=== PATIENT | male | born 1945 | race Caucasian/White ===

== ENCOUNTER → 2016-04-05 | Outpatient (CLI) | payer MEDICARE ==
[~2016-04-05] MED LIST: AMLO5TAB2 PO; ASPI325T80 PO; ATOR20TA9 PO; CARV12.543 PO; CLON0.3T PO; CLOP75TA PO; CYCL-259 PO; GLIM2TAB2 PO; HYDR25TA6 PO; INSU100C5 SQ-INSULIN; INSU100I28 SQ; INSU100I28 SQ-INSULIN; INSU100V13 SC; LISI-167 PO; LISI-170 PO; METF10002 PO; METO50TA82 PO; NORT50CA PO; OXYC5TAB3 PO; POLY17PO5 PO; ROSU10TA PO; SENN1TAB7 PO; TEMA15CA6 PO
== END | disposition home or self-care (01) ==
LOC: WOUND 12:45
PROVIDERS: ATTEND Internal Medicine
DX: E11.621 Type 2 diabetes mellitus with foot ulcer (principal); L97.521 Non-pressure chronic ulcer of other part of left foot limited to breakdown of skin; E11.40 Type 2 diabetes mellitus with diabetic neuropathy, unspecified; E11.69 Type 2 diabetes mellitus with other specified complication; M86.172 Other acute osteomyelitis, left ankle and foot; E78.5 Hyperlipidemia, unspecified; E11.22 Type 2 diabetes mellitus with diabetic chronic kidney disease; I12.9 Hypertensive chronic kidney disease with stage 1 through stage 4 chronic kidney disease, or unspecified chronic kidney disease; N18.3 Chronic kidney disease, stage 3 (moderate); G47.33 Obstructive sleep apnea (adult) (pediatric); E11.42 Type 2 diabetes mellitus with diabetic polyneuropathy; E11.51 Type 2 diabetes mellitus with diabetic peripheral angiopathy without gangrene; E78.00 Pure hypercholesterolemia, unspecified; Z86.73 Personal history of transient ischemic attack (TIA), and cerebral infarction without residual deficits
CPT/HCPCS: 97597; 97598

== ENCOUNTER → 2016-04-12 | Outpatient (CLI) | payer MEDICARE | END | disposition home or self-care (01) | LOC: WOUND 10:30 | PROVIDERS: ATTEND Internal Medicine | DX: E11.621 Type 2 diabetes mellitus with foot ulcer (principal); L97.521 Non-pressure chronic ulcer of other part of left foot limited to breakdown of skin; T25.222D Burn of second degree of left foot, subsequent encounter; E11.69 Type 2 diabetes mellitus with other specified complication; M86.172 Other acute osteomyelitis, left ankle and foot; E78.5 Hyperlipidemia, unspecified; E11.22 Type 2 diabetes mellitus with diabetic chronic kidney disease; I12.9 Hypertensive chronic kidney disease with stage 1 through stage 4 chronic kidney disease, or unspecified chronic kidney disease; N18.3 Chronic kidney disease, stage 3 (moderate); E11.42 Type 2 diabetes mellitus with diabetic polyneuropathy; E78.00 Pure hypercholesterolemia, unspecified; E11.51 Type 2 diabetes mellitus with diabetic peripheral angiopathy without gangrene; M19.90 Unspecified osteoarthritis, unspecified site; Z86.73 Personal history of transient ischemic attack (TIA), and cerebral infarction without residual deficits; Z89.511 Acquired absence of right leg below knee; X08.8XXD Exposure to other specified smoke, fire and flames, subsequent encounter | CPT/HCPCS: 97597; 97598 ==

== ENCOUNTER → 2016-05-03 | Outpatient (CLI) | payer MEDICARE | END | disposition home or self-care (01) | LOC: WOUND 09:41 | PROVIDERS: ATTEND Internal Medicine | DX: E11.621 Type 2 diabetes mellitus with foot ulcer (principal); L97.521 Non-pressure chronic ulcer of other part of left foot limited to breakdown of skin; T25.222D Burn of second degree of left foot, subsequent encounter; E11.69 Type 2 diabetes mellitus with other specified complication; M86.172 Other acute osteomyelitis, left ankle and foot; E78.5 Hyperlipidemia, unspecified; E11.22 Type 2 diabetes mellitus with diabetic chronic kidney disease; I12.9 Hypertensive chronic kidney disease with stage 1 through stage 4 chronic kidney disease, or unspecified chronic kidney disease; N18.3 Chronic kidney disease, stage 3 (moderate); E78.00 Pure hypercholesterolemia, unspecified; M19.90 Unspecified osteoarthritis, unspecified site; E11.51 Type 2 diabetes mellitus with diabetic peripheral angiopathy without gangrene; E11.42 Type 2 diabetes mellitus with diabetic polyneuropathy; Z86.73 Personal history of transient ischemic attack (TIA), and cerebral infarction without residual deficits; Z89.511 Acquired absence of right leg below knee; X08.8XXD Exposure to other specified smoke, fire and flames, subsequent encounter | CPT/HCPCS: 97597 ==

== ENCOUNTER → 2016-05-10 | Outpatient (CLI) | payer MEDICARE | END | disposition home or self-care (01) | LOC: WOUND 08:56 | PROVIDERS: ATTEND Internal Medicine | DX: S91.102D Unspecified open wound of left great toe without damage to nail, subsequent encounter (principal); T25.222D Burn of second degree of left foot, subsequent encounter; E11.40 Type 2 diabetes mellitus with diabetic neuropathy, unspecified; E11.69 Type 2 diabetes mellitus with other specified complication; M86.172 Other acute osteomyelitis, left ankle and foot; I10 Essential (primary) hypertension; E78.5 Hyperlipidemia, unspecified; Z86.73 Personal history of transient ischemic attack (TIA), and cerebral infarction without residual deficits; Z89.511 Acquired absence of right leg below knee; T31.0 Burns involving less than 10% of body surface; X08.8XXD Exposure to other specified smoke, fire and flames, subsequent encounter; X58.XXXD Exposure to other specified factors, subsequent encounter | CPT/HCPCS: 97597 ==

== ENCOUNTER → 2016-05-16 | Outpatient (CLI) | payer MEDICARE | END | disposition home or self-care (01) | LOC: WOUND 08:45 | PROVIDERS: ATTEND Internal Medicine | DX: E11.621 Type 2 diabetes mellitus with foot ulcer (principal); L97.521 Non-pressure chronic ulcer of other part of left foot limited to breakdown of skin; E11.40 Type 2 diabetes mellitus with diabetic neuropathy, unspecified; E11.69 Type 2 diabetes mellitus with other specified complication; M86.172 Other acute osteomyelitis, left ankle and foot; I10 Essential (primary) hypertension; E78.5 Hyperlipidemia, unspecified; E78.00 Pure hypercholesterolemia, unspecified; E11.42 Type 2 diabetes mellitus with diabetic polyneuropathy; E11.51 Type 2 diabetes mellitus with diabetic peripheral angiopathy without gangrene; M19.90 Unspecified osteoarthritis, unspecified site; G47.33 Obstructive sleep apnea (adult) (pediatric); Z86.73 Personal history of transient ischemic attack (TIA), and cerebral infarction without residual deficits | CPT/HCPCS: 97597; G0463; WOU0463 ==

== ENCOUNTER → 2016-06-21 | Outpatient (CLI) | payer MEDICARE ==
[~2016-06-21] MED LIST changes: -CLON0.3T PO; +CLON0.3T47 PO
== END | disposition home or self-care (01) ==
LOC: WOUND 12:46
PROVIDERS: ATTEND Internal Medicine
DX: E11.621 Type 2 diabetes mellitus with foot ulcer (principal); L97.521 Non-pressure chronic ulcer of other part of left foot limited to breakdown of skin; L97.421 Non-pressure chronic ulcer of left heel and midfoot limited to breakdown of skin; I10 Essential (primary) hypertension; E78.5 Hyperlipidemia, unspecified; G47.33 Obstructive sleep apnea (adult) (pediatric); E11.69 Type 2 diabetes mellitus with other specified complication; M86.172 Other acute osteomyelitis, left ankle and foot; E78.00 Pure hypercholesterolemia, unspecified; E11.51 Type 2 diabetes mellitus with diabetic peripheral angiopathy without gangrene; M19.90 Unspecified osteoarthritis, unspecified site; E11.22 Type 2 diabetes mellitus with diabetic chronic kidney disease; I12.9 Hypertensive chronic kidney disease with stage 1 through stage 4 chronic kidney disease, or unspecified chronic kidney disease; N18.3 Chronic kidney disease, stage 3 (moderate); Z86.73 Personal history of transient ischemic attack (TIA), and cerebral infarction without residual deficits; Z89.511 Acquired absence of right leg below knee
CPT/HCPCS: 97597

== ENCOUNTER → 2016-06-28 | Outpatient (CLI) | payer MEDICARE | END | disposition home or self-care (01) | LOC: WOUND 13:00 | PROVIDERS: ATTEND Internal Medicine | DX: E11.621 Type 2 diabetes mellitus with foot ulcer (principal); E11.622 Type 2 diabetes mellitus with other skin ulcer; L97.511 Non-pressure chronic ulcer of other part of right foot limited to breakdown of skin; L97.321 Non-pressure chronic ulcer of left ankle limited to breakdown of skin; E78.5 Hyperlipidemia, unspecified; E11.22 Type 2 diabetes mellitus with diabetic chronic kidney disease; I12.9 Hypertensive chronic kidney disease with stage 1 through stage 4 chronic kidney disease, or unspecified chronic kidney disease; N18.3 Chronic kidney disease, stage 3 (moderate); G47.33 Obstructive sleep apnea (adult) (pediatric); E78.00 Pure hypercholesterolemia, unspecified; E11.51 Type 2 diabetes mellitus with diabetic peripheral angiopathy without gangrene; E11.42 Type 2 diabetes mellitus with diabetic polyneuropathy; Z86.73 Personal history of transient ischemic attack (TIA), and cerebral infarction without residual deficits; Z89.511 Acquired absence of right leg below knee | CPT/HCPCS: 97597 ==

== ENCOUNTER → 2016-07-12 | Outpatient (CLI) | payer MEDICARE | END | disposition home or self-care (01) | LOC: WOUND 13:04 | PROVIDERS: ATTEND Internal Medicine | DX: E11.621 Type 2 diabetes mellitus with foot ulcer (principal); L97.521 Non-pressure chronic ulcer of other part of left foot limited to breakdown of skin; E78.5 Hyperlipidemia, unspecified; I10 Essential (primary) hypertension; Z86.73 Personal history of transient ischemic attack (TIA), and cerebral infarction without residual deficits; E11.51 Type 2 diabetes mellitus with diabetic peripheral angiopathy without gangrene; E11.22 Type 2 diabetes mellitus with diabetic chronic kidney disease; I12.9 Hypertensive chronic kidney disease with stage 1 through stage 4 chronic kidney disease, or unspecified chronic kidney disease; N18.3 Chronic kidney disease, stage 3 (moderate); E11.69 Type 2 diabetes mellitus with other specified complication; M86.172 Other acute osteomyelitis, left ankle and foot; E78.00 Pure hypercholesterolemia, unspecified; G47.33 Obstructive sleep apnea (adult) (pediatric); M19.90 Unspecified osteoarthritis, unspecified site; Z89.511 Acquired absence of right leg below knee | CPT/HCPCS: 97597 ==

== ENCOUNTER → 2016-07-26 | Outpatient (CLI) | payer MEDICARE | END | disposition home or self-care (01) | LOC: WOUND 13:00 | PROVIDERS: ATTEND Internal Medicine | DX: E11.621 Type 2 diabetes mellitus with foot ulcer (principal); L97.521 Non-pressure chronic ulcer of other part of left foot limited to breakdown of skin; S81.002D Unspecified open wound, left knee, subsequent encounter; S01.80XD Unspecified open wound of other part of head, subsequent encounter; E78.5 Hyperlipidemia, unspecified; E11.69 Type 2 diabetes mellitus with other specified complication; M86.371 Chronic multifocal osteomyelitis, right ankle and foot; M19.072 Primary osteoarthritis, left ankle and foot; E11.22 Type 2 diabetes mellitus with diabetic chronic kidney disease; I12.9 Hypertensive chronic kidney disease with stage 1 through stage 4 chronic kidney disease, or unspecified chronic kidney disease; N18.3 Chronic kidney disease, stage 3 (moderate); E78.00 Pure hypercholesterolemia, unspecified; E11.51 Type 2 diabetes mellitus with diabetic peripheral angiopathy without gangrene; E11.42 Type 2 diabetes mellitus with diabetic polyneuropathy; M19.90 Unspecified osteoarthritis, unspecified site; Z86.73 Personal history of transient ischemic attack (TIA), and cerebral infarction without residual deficits; Z89.511 Acquired absence of right leg below knee; X58.XXXD Exposure to other specified factors, subsequent encounter | CPT/HCPCS: 97597; 97598 ==

== ENCOUNTER → 2016-08-02 | Outpatient (CLI) | payer MEDICARE | END | disposition home or self-care (01) | LOC: WOUND 13:00 | PROVIDERS: ATTEND Internal Medicine | DX: E11.621 Type 2 diabetes mellitus with foot ulcer (principal); L97.521 Non-pressure chronic ulcer of other part of left foot limited to breakdown of skin; S81.002D Unspecified open wound, left knee, subsequent encounter; S01.80XD Unspecified open wound of other part of head, subsequent encounter; M19.072 Primary osteoarthritis, left ankle and foot; E78.5 Hyperlipidemia, unspecified; E11.69 Type 2 diabetes mellitus with other specified complication; M86.371 Chronic multifocal osteomyelitis, right ankle and foot; M86.172 Other acute osteomyelitis, left ankle and foot; E78.00 Pure hypercholesterolemia, unspecified; E11.22 Type 2 diabetes mellitus with diabetic chronic kidney disease; I12.9 Hypertensive chronic kidney disease with stage 1 through stage 4 chronic kidney disease, or unspecified chronic kidney disease; N18.3 Chronic kidney disease, stage 3 (moderate); E11.42 Type 2 diabetes mellitus with diabetic polyneuropathy; E11.51 Type 2 diabetes mellitus with diabetic peripheral angiopathy without gangrene; M19.90 Unspecified osteoarthritis, unspecified site; Z89.511 Acquired absence of right leg below knee; Z86.73 Personal history of transient ischemic attack (TIA), and cerebral infarction without residual deficits; X58.XXXD Exposure to other specified factors, subsequent encounter | CPT/HCPCS: 97597; G0463; WOU0463 ==

== ENCOUNTER → 2016-08-02 | Outpatient (CLI) | payer MEDICARE | END | disposition home or self-care (01) | LOC: CFH 13:56 | PROVIDERS: ATTEND Internal Medicine | DX: M19.072 Primary osteoarthritis, left ankle and foot (principal) ==

== ENCOUNTER → 2016-12-01 | Outpatient (CLI) | payer MEDICARE | END | disposition home or self-care (01) | LOC: WOUND 14:01 | PROVIDERS: ATTEND Physician Assistant | DX: E11.621 Type 2 diabetes mellitus with foot ulcer (principal); L97.521 Non-pressure chronic ulcer of other part of left foot limited to breakdown of skin; E11.22 Type 2 diabetes mellitus with diabetic chronic kidney disease; I12.9 Hypertensive chronic kidney disease with stage 1 through stage 4 chronic kidney disease, or unspecified chronic kidney disease; N18.3 Chronic kidney disease, stage 3 (moderate); E11.69 Type 2 diabetes mellitus with other specified complication; M86.371 Chronic multifocal osteomyelitis, right ankle and foot; Z86.73 Personal history of transient ischemic attack (TIA), and cerebral infarction without residual deficits; E78.00 Pure hypercholesterolemia, unspecified; E11.42 Type 2 diabetes mellitus with diabetic polyneuropathy; E11.51 Type 2 diabetes mellitus with diabetic peripheral angiopathy without gangrene; M19.90 Unspecified osteoarthritis, unspecified site; G47.33 Obstructive sleep apnea (adult) (pediatric) | CPT/HCPCS: G0463; WOU0463 ==

== ENCOUNTER → 2016-12-12 | Outpatient (CLI) | payer MEDICARE | END | disposition home or self-care (01) | LOC: WOUND 14:31 | PROVIDERS: ATTEND Internal Medicine Infectious Disease | DX: E11.621 Type 2 diabetes mellitus with foot ulcer (principal); L97.521 Non-pressure chronic ulcer of other part of left foot limited to breakdown of skin; I10 Essential (primary) hypertension; E11.43 Type 2 diabetes mellitus with diabetic autonomic (poly)neuropathy; I70.202 Unspecified atherosclerosis of native arteries of extremities, left leg; E78.01 Familial hypercholesterolemia; E11.22 Type 2 diabetes mellitus with diabetic chronic kidney disease; I12.9 Hypertensive chronic kidney disease with stage 1 through stage 4 chronic kidney disease, or unspecified chronic kidney disease; N18.3 Chronic kidney disease, stage 3 (moderate); G47.33 Obstructive sleep apnea (adult) (pediatric); Z86.73 Personal history of transient ischemic attack (TIA), and cerebral infarction without residual deficits; E78.00 Pure hypercholesterolemia, unspecified; E11.42 Type 2 diabetes mellitus with diabetic polyneuropathy; E11.51 Type 2 diabetes mellitus with diabetic peripheral angiopathy without gangrene; M19.90 Unspecified osteoarthritis, unspecified site | CPT/HCPCS: G0463; WOU0463 ==

== ENCOUNTER → 2017-07-12 | Outpatient (CLI) | payer MEDICARE | END | disposition home or self-care (01) | LOC: RAD 13:48 | PROVIDERS: ATTEND Physical Medicine & Rehabilitation | DX: M51.17 Intervertebral disc disorders with radiculopathy, lumbosacral region (principal); M43.16 Spondylolisthesis, lumbar region; M47.27 Other spondylosis with radiculopathy, lumbosacral region | CPT/HCPCS: 72110; 72148 ==

== ENCOUNTER 2017-10-08 14:06 | Emergency (ER) | payer MEDICARE ==
[~2017-10-08] VITALS: Ht 182.9 cm; Wt 89.0 kg
[2017-10-08 14:20] VITALS: BP 180/87
[2017-10-08 15:01] LABS: BASOPHILS # (AUTO) 0.11 x10^3/uL (0-0.1); BASOPHILS % (AUTO) 1 % (0-1); EOSINOPHILS # (AUTO) 0.22 x10^3/uL (0-0.4); EOSINOPHILS % (AUTO) 2 % (1-7); LYMPHOCYTES # (AUTO) 1.75 x10^3/uL (1-3.4); LYMPHOCYTES % (AUTO) 14 % (22-44); MD NO; MEAN CORPUSCULAR HEMOGLOBIN 30.1 pg (27.5-34.5); MEAN CORPUSCULAR HGB CONC 32.8 g/dL (33.2-36.2); MEAN CORPUSCULAR VOLUME 91.8 fL (81-97); MEAN PLATELET VOLUME 7.6 fL (7.4-10.4); MONOCYTES # (AUTO) 0.99 x10^3/uL (0.2-0.8); MONOCYTES % (AUTO) 8 % (2-9); NEUTROPHILS # (AUTO) 9.19 x10^3/uL (1.8-6.8); NEUTROPHILS % (AUTO) 75 % (42-75); PLATELET COUNT 236 x10^3/uL (130-400); RED BLOOD COUNT 5.89 x10^6/uL (4.38-5.82); RED CELL DISTRIBUTION WIDTH 14.7 % (9.4-14.8)
[2017-10-08 15:14] LABS: ALBUMIN 3.9 g/dL (3.4-5.0); ANION GAP 12 mmol/L (5-15); CALCIUM 9.1 mg/dL (8.5-10.1); CHLORIDE 107 mmol/L (98-107)
[2017-10-08 15:16] LABS: CULTURE INDICATED? NO; MICROSCOPIC AUTO
[2017-10-08 15:20] LABS: ALANINE AMINOTRANSFERASE 43 U/L (12-78); ALKALINE PHOSPHATASE 68 U/L (45-117); BILIRUBIN,TOTAL 1.1 mg/dL (0.2-1.0); CREATININE 1.35 mg/dL (0.7-1.3)
== END 2017-10-08 16:40 | disposition home or self-care (01) ==
LOC: ED 16:19
DX: R33.9 Retention of urine, unspecified (principal); I10 Essential (primary) hypertension; E11.9 Type 2 diabetes mellitus without complications; E78.00 Pure hypercholesterolemia, unspecified; Z86.73 Personal history of transient ischemic attack (TIA), and cerebral infarction without residual deficits
CPT/HCPCS: 36415; 51702; 74018; 80053; 81001; 85025; 99285

== ENCOUNTER → 2018-01-15 | Outpatient (CLI) | payer MEDICARE ==
[~2018-01-15] MED LIST changes: -AMLO5TAB2 PO; +AMLO5TAB7 PO; -NORT50CA PO; +NORT50CA52 PO; +REGADENOSON 0.4 MG/5 ML SYRINGE ONE; -SENN1TAB7 PO; +SENN1TAB8 PO
== END | disposition home or self-care (01) ==
LOC: CFH 06:48
PROVIDERS: ATTEND Internal Medicine Cardiovascular Disease
DX: I25.10 Atherosclerotic heart disease of native coronary artery without angina pectoris (principal)
CPT/HCPCS: 78452; 93017; A9502; J2785

== ENCOUNTER 2018-01-28 09:34 | Observation (INO) | payer MEDICARE ==
[~2018-01-28] VITALS: Ht 182.9 cm; Wt 85.9 kg
[~2018-01-28 09:34] MED LIST changes: +AMLO-150 PO; -AMLO5TAB7 PO; +ATOR20TA37 PO; -ATOR20TA9 PO; -REGADENOSON 0.4 MG/5 ML SYRINGE ONE
[2018-01-28 10:32] VITALS: BP 116/71
[2018-01-28] MEDS ORDERED: GABA-827 PO (10:47)
[2018-01-28] MEDS ORDERED: DEXT1CAP PO (10:47)
[2018-01-28] MEDS ORDERED: LEVO25TA4 PO (10:47)
[2018-01-28] MEDS ORDERED: HEPARIN 1,000 UNITS/ML, 10ML ONE (12:12)
[2018-01-28] MEDS ORDERED: FENTANYL PF 100 MCG/2ML ONE (12:12)
[2018-01-28] MEDS ORDERED: MIDAZOLAM 1 MG/ML, 2ML ONE (12:12)
[2018-01-28] MEDS ORDERED: VERAPAMIL 2.5 MG/ML, 2ML ONE (12:12)
[2018-01-28] MEDS: SODIUM CHLORIDE 0.9% 1,000 ML IV SCH ×2 (13:06→21:39)
[2018-01-28] MEDS: GABAPENTIN 400 MG CAPSULE PO SCH ×2 (17:42→21:38)
[2018-01-28 19:11] VITALS: BP 131/75
[2018-01-28] MEDS ORDERED: ATORVASTATIN 20 MG TABLET PO SCH (21:00)
[2018-01-28] MEDS ORDERED: INSULIN GLARGINE 100 UNITS/ML, PEN SQ-INSULIN SCH (21:00)
[2018-01-28] MEDS ORDERED: INSULIN ASPART SQ-INSULIN SCH (21:00)
[2018-01-28] MEDS: CARVEDILOL 12.5 MG TABLET PO SCH (21:38)
[2018-01-28] MEDS: LISINOPRIL 20 MG TABLET PO SCH (21:39)
[2018-01-28] MEDS: INSULIN LISPRO 100 UNITS/ML, PEN SQ-INSULIN SCH (22:14)
[2018-01-29 04:08] VITALS: BP 110/62
[2018-01-29 04:43] LABS: ANION GAP 10 mmol/L (5-15); CALCIUM 8.3 mg/dL (8.5-10.1); CHLORIDE 105 mmol/L (98-107); CREATININE 1.03 mg/dL (0.7-1.3)
[2018-01-29] MEDS: SODIUM CHLORIDE 0.9% 1,000 ML IV SCH (05:31)
[2018-01-29] MEDS ORDERED: LEVOTHYROXINE 25 MCG TABLET PO SCH (06:00)
[2018-01-29 06:53] VITALS: BP 127/74
[2018-01-29] MEDS: INSULIN LISPRO 100 UNITS/ML, PEN SQ-INSULIN SCH ×2 (07:00→11:00)
[2018-01-29] MEDS: GABAPENTIN 400 MG CAPSULE PO SCH (08:11)
[2018-01-29] MEDS: CARVEDILOL 12.5 MG TABLET PO SCH (08:12)
[2018-01-29] MEDS: LISINOPRIL 20 MG TABLET PO SCH (08:12)
[2018-01-29] MEDS ORDERED: AMLODIPINE 5 MG TABLET PO SCH (09:00)
[2018-01-29] MEDS ORDERED: SENNA/DOCUSATE TABLET PO SCH (09:00)
[2018-01-29] MEDS ORDERED: HYDROCHLOROTHIAZIDE 25 MG TABLET PO SCH (09:00)
[2018-01-29] MEDS ORDERED: INSULIN GLARGINE 100 UNITS/ML, PEN SQ-INSULIN SCH (09:00)
[2018-01-29] MEDS ORDERED: ASPI325T17 PO (09:42)
== END 2018-01-29 12:40 | disposition home or self-care (01) ==
LOC: CACL 09:34 → 5SO 16:04 → CACL 20:23
PROVIDERS: ADMIT Internal Medicine Cardiovascular Disease; ATTEND Internal Medicine Cardiovascular Disease
DX: I25.10 Atherosclerotic heart disease of native coronary artery without angina pectoris (principal); E11.9 Type 2 diabetes mellitus without complications; I10 Essential (primary) hypertension; R94.4 Abnormal results of kidney function studies; Z82.49 Family history of ischemic heart disease and other diseases of the circulatory system; Z79.4 Long term (current) use of insulin
CPT/HCPCS: 36415; 80048; 82962; 93306; 93458; 93880; 96372; 99156; C1894; G0378; J1644; J1815; J2250; J3010; Q9967

== ENCOUNTER 2018-06-19 06:52 | Emergency (ER) | payer MEDICARE ==
[~2018-06-19] VITALS: Ht 182.9 cm; Wt 92.4 kg
[~2018-06-19 06:52] MED LIST changes: +ACET325T14 PO; +ALPR0.254 PO; +AMIO200T42 PO; +ASPI325T17 PO; +ASPI81TA45 PO; +ATOR40TA78 PO; +CARV3.1212 PO; +DEXT1CAP PO; +GABA-827 PO; +HYDR-3240 PO; +LEVO25TA4 PO; -ROSU10TA PO; +ROSU10TA2 PO; +SENN-177 PO; -SENN1TAB8 PO
[2018-06-19 06:55] VITALS: BP 115/75
--- NOTE | 2018-06-19 07:25 | NUR ---
pt voided ~20ml yellow urine, PVR via bladder scan >200ml, ERP aware.
[2018-06-19 07:39] LABS: BASOPHILS % (AUTO) 1 % (0-1); EOSINOPHILS # (AUTO) 0.24 x10^3/uL (0-0.4); EOSINOPHILS % (AUTO) 2 % (1-7); LYMPHOCYTES # (AUTO) 1.64 x10^3/uL (1-3.4); LYMPHOCYTES % (AUTO) 11 % (22-44); MD NO; MEAN CORPUSCULAR HEMOGLOBIN 23.8 pg (27.5-34.5); MEAN CORPUSCULAR HGB CONC 31.8 g/dL (33.2-36.2); MEAN CORPUSCULAR VOLUME 74.9 fL (81-97); MEAN PLATELET VOLUME 7.8 fL (7.4-10.4); MONOCYTES % (AUTO) 10 % (2-9); NEUTROPHILS # (AUTO) 11.33 x10^3/uL (1.8-6.8); NEUTROPHILS % (AUTO) 77 % (42-75); PLATELET COUNT 292 x10^3/uL (130-400); RED BLOOD COUNT 6.39 x10^6/uL (4.38-5.82); RED CELL DISTRIBUTION WIDTH 21.1 % (9.4-14.8)
[2018-06-19 07:42] LABS: ALANINE AMINOTRANSFERASE 32 U/L (12-78); ALBUMIN 3.7 g/dL (3.4-5.0); ANION GAP 7 mmol/L (5-15); CALCIUM 8.9 mg/dL (8.5-10.1); CHLORIDE 103 mmol/L (98-107); CREATININE 1.39 mg/dL (0.7-1.3)
[2018-06-19 07:44] LABS: ALKALINE PHOSPHATASE 83 U/L (45-117); BILIRUBIN,TOTAL 1.2 mg/dL (0.2-1.0); TOTAL PROTEIN 8.7 g/dL (6.4-8.2)
--- NOTE | 2018-06-19 07:49 | NUR ---
FC inserted via aseptic technique, patent & draining to gravity, pt tolerated procedure well, upright on gurney awake & more comfortable, T[place] but responds approp to staff, NAD, comfort measures provided, call light within reach.
[2018-06-19 07:56] LABS: CULTURE INDICATED? NO; MICROSCOPIC AUTO
--- NOTE | 2018-06-19 08:37 | NUR ---
TASK RN: Patient/Caregiver given discharge instructions and they have confirmed that they understand the instructions. Patient ambulatory with steady gait.
== END 2018-06-19 08:37 | disposition home or self-care (01) ==
LOC: ED 08:02
DX: I12.9 Hypertensive chronic kidney disease with stage 1 through stage 4 chronic kidney disease, or unspecified chronic kidney disease (principal); E11.22 Type 2 diabetes mellitus with diabetic chronic kidney disease; N18.2 Chronic kidney disease, stage 2 (mild); R33.9 Retention of urine, unspecified; K59.00 Constipation, unspecified; Z86.73 Personal history of transient ischemic attack (TIA), and cerebral infarction without residual deficits; Z86.79 Personal history of other diseases of the circulatory system
CPT/HCPCS: 36415; 51702; 80053; 81001; 85025; 99284

== ENCOUNTER 2018-06-20 14:45 | Emergency (ER) | payer MEDICARE | END 2018-06-20 17:22 | disposition home or self-care (01) | LOC: ED 14:50 | DX: Z02.9 Encounter for administrative examinations, unspecified (principal) ==

== ENCOUNTER 2019-02-11 08:41 | Emergency (ER) | payer MEDICARE ==
[~2019-02-11] VITALS: Ht 190.5 cm; Wt 94.7 kg
[~2019-02-11 08:41] MED LIST changes: -GLIM2TAB2 PO; +GLIM2TAB3 PO
[2019-02-11] MEDS ORDERED: MUPIROCIN OINT 2%, 1 GM APPL. EXT ONE (09:00)
--- NOTE | 2019-02-11 09:09 | NUR ---
muporicin ointment requested from pharmacy, not in ED omnicell.
[2019-02-11] MEDS ORDERED: DIPH,PERTUSS(ACELL),TET VAC/PF 0.5 ML IM-VACC ONE ×2 (09:30→09:43)
[2019-02-11 10:07] VITALS: BP 97/64
--- NOTE | 2019-02-11 10:09 | NUR ---
pt medicated per emar, tolerated well. pt given dc instructions and script, educated regarding rx for keflex. wound care provided by HUMBERTO Holt, pt given f/u instructions. vs reassessed, pt states baseline bp is 90/60s and baseline spo2 is 90%. pt amb to dc with own walker, gait steady. nadn at dc.
== END 2019-02-11 10:09 | disposition home or self-care (01) ==
LOC: ED 09:55
DX: L03.115 Cellulitis of right lower limb (principal); I10 Essential (primary) hypertension; E78.00 Pure hypercholesterolemia, unspecified; E11.40 Type 2 diabetes mellitus with diabetic neuropathy, unspecified; Z86.73 Personal history of transient ischemic attack (TIA), and cerebral infarction without residual deficits
CPT/HCPCS: 90471; 90715; 99283

== ENCOUNTER 2019-05-28 09:24 | Outpatient (CLI) | payer MEDICARE, OTHER ==
[~2019-05-28 09:24] MED LIST changes: +CLON0.3T PO; -CLON0.3T47 PO; -GLIM2TAB3 PO; +GLIM2TAB7 PO
== END 2019-05-28 23:59 | disposition home or self-care (01) ==
LOC: CVU 09:24
PROVIDERS: ATTEND Internal Medicine Cardiovascular Disease
DX: I08.0 Rheumatic disorders of both mitral and aortic valves (principal); I65.23 Occlusion and stenosis of bilateral carotid arteries; I25.3 Aneurysm of heart; I25.10 Atherosclerotic heart disease of native coronary artery without angina pectoris; I63.9 Cerebral infarction, unspecified
CPT/HCPCS: 93306; 93880

== ENCOUNTER → 2019-07-18 | Outpatient (CLI) | payer MEDICARE ==
[~2019-07-18] MED LIST changes: +OMNIPAQUE 350 MG/ML, 100ML BOTTLE ONE
== END | disposition home or self-care (01) ==
LOC: CFH 12:58
PROVIDERS: ATTEND Registered Nurse
DX: M48.54XA Collapsed vertebra, not elsewhere classified, thoracic region, initial encounter for fracture (principal); M95.4 Acquired deformity of chest and rib; I65.23 Occlusion and stenosis of bilateral carotid arteries; M47.814 Spondylosis without myelopathy or radiculopathy, thoracic region
CPT/HCPCS: 70498; 82565; Q9967

== ENCOUNTER 2019-11-23 12:01 | Emergency (ER) | payer MEDICARE ==
[~2019-11-23] VITALS: Ht 182.9 cm; Wt 95.6 kg
[~2019-11-23 12:01] MED LIST changes: -OMNIPAQUE 350 MG/ML, 100ML BOTTLE ONE
--- NOTE | 2019-11-23 12:42 | NUR ---
bladder scan 877 ml, md aware. plan for maldonado w leg bag, labs and ua. pt nad, tender to touch on lower abd. as
[2019-11-23 13:03] LABS: BASOPHILS # (AUTO) 0.04 x10^3/uL (0-0.1); BASOPHILS % (AUTO) 1 % (0-1); EOSINOPHILS # (AUTO) 0.51 x10^3/uL (0-0.4); EOSINOPHILS % (AUTO) 6 % (1-7); LYMPHOCYTES # (AUTO) 1.38 x10^3/uL (1-3.4); LYMPHOCYTES % (AUTO) 17 % (22-44); MD NO; MEAN CORPUSCULAR HEMOGLOBIN 28.4 pg (27.5-34.5); MEAN CORPUSCULAR HGB CONC 32.1 g/dL (33.2-36.2); MEAN PLATELET VOLUME 7.7 fL (7.4-10.4); MONOCYTES % (AUTO) 11 % (2-9); NEUTROPHILS # (AUTO) 5.13 x10^3/uL (1.8-6.8); NEUTROPHILS % (AUTO) 65 % (42-75); PLATELET COUNT 191 x10^3/uL (130-400); RED BLOOD COUNT 6.32 x10^6/uL (4.38-5.82); RED CELL DISTRIBUTION WIDTH 17.5 % (9.4-14.8)
--- NOTE | 2019-11-23 13:08 | NUR ---
maldonado placed, approx 1 L out, clamped. ua walked to lab. pt sts immediate relief. labs pending. as
[2019-11-23 13:12] LABS: MICROSCOPIC NOT IND
[2019-11-23 13:14] LABS: ALBUMIN 3.4 g/dL (3.4-5.0); ANION GAP 9 mmol/L (5-15); CALCIUM 8.8 mg/dL (8.5-10.1); CHLORIDE 106 mmol/L (98-107); CREATININE 1.29 mg/dL (0.7-1.3)
[2019-11-23] MEDS ORDERED: TAMSULOSIN 0.4 MG CAP.ER.24H PO ONE (14:00)
[2019-11-23] MEDS ORDERED: TAMSULOSIN 0.4 MG CAP.ER.24H ONE (14:09)
[2019-11-23 14:15] VITALS: BP 135/72
== END 2019-11-23 14:29 | disposition home or self-care (01) ==
LOC: ED 12:20
DX: R33.8 Other retention of urine (principal); I10 Essential (primary) hypertension; E11.9 Type 2 diabetes mellitus without complications; E78.00 Pure hypercholesterolemia, unspecified; Z86.73 Personal history of transient ischemic attack (TIA), and cerebral infarction without residual deficits
CPT/HCPCS: 36415; 51702; 80048; 81003; 82040; 85025; 99284

== ENCOUNTER 2019-11-26 11:13 | Emergency (ER) | payer MEDICARE ==
[~2019-11-26] VITALS: Ht 182.9 cm; Wt 91.0 kg
[2019-11-26 11:23] VITALS: BP 150/66
--- NOTE | 2019-11-26 12:52 | NUR ---
LEG BAG REPLACED. NEW STAT LOCK IN PLACE. URINARY FLOW OBSERVED. BAG SECURED TO PT LEG
== END 2019-11-26 13:09 | disposition home or self-care (01) ==
LOC: ED 12:58
DX: T83.098A Other mechanical complication of other urinary catheter, initial encounter (principal); I10 Essential (primary) hypertension; E11.9 Type 2 diabetes mellitus without complications; I73.9 Peripheral vascular disease, unspecified; Z86.73 Personal history of transient ischemic attack (TIA), and cerebral infarction without residual deficits
CPT/HCPCS: 99284

== ENCOUNTER → 2020-03-01 | Outpatient (CLI) | payer MEDICARE | END | disposition home or self-care (01) | LOC: RAD 14:00 | PROVIDERS: ATTEND Nurse Practitioner Primary Care | DX: M75.32 Calcific tendinitis of left shoulder (principal); M62.81 Muscle weakness (generalized); M79.2 Neuralgia and neuritis, unspecified; Z99.3 Dependence on wheelchair; Z79.899 Other long term (current) drug therapy ==

== ENCOUNTER 2020-03-22 16:08 | Inpatient (IN) | payer MEDICARE ==
[~2020-03-22] VITALS: Ht 182.9 cm; Wt 93.0 kg
[~2020-03-22 16:08] MED LIST changes: -CYCL-259 PO; +CYCL10TA2 PO; +HYDR-1067 PO; -HYDR-3240 PO; -OXYC5TAB3 PO; +OXYC5TAB98 PO
[2020-03-22] MEDS ORDERED: SODIUM CHLORIDE FLUSH 10ML SYR IVF ONE (16:30)
--- NOTE | 2020-03-22 16:43 | NUR ---
REPORT FROM ELIZABETH WAYNE. PT LAYING BACK IN BED. MOVED TO TRAUMA 4 FOR QUESTIONABLE RIB SYMPTOMS SIMILAR TO FLAIL CHEST, HOWEVER UNCERTAIN OF PT'S EXACT SURGICAL HX AND ERMD TO REVIEW. ERMD AT BEDSIDE CURRENTLY FOR ASSESSMENT. LABS COMPLETED. IMAGING AT BEDSIDE.
[2020-03-22 16:54] LABS: O2 FLOW 2.5 L/min
[2020-03-22 17:03] LABS: MEAN CORPUSCULAR HEMOGLOBIN 31.3 pg (27.5-34.5); MEAN CORPUSCULAR HGB CONC 32.5 g/dL (33.2-36.2); MEAN PLATELET VOLUME 8.8 fL (7.4-10.4); PLATELET COUNT 196 x10^3/uL (130-400); RED BLOOD COUNT 5.99 x10^6/uL (4.38-5.82); RED CELL DISTRIBUTION WIDTH 16.5 % (9.4-14.8)
[2020-03-22 17:05] LABS: INTERNATIONAL NORMALIZED RATIO 1.15 (0.93-1.1); PROTHROMBIN TIME 12.3 Seconds (9.6-11.5)
[2020-03-22 17:06] LABS: ALANINE AMINOTRANSFERASE 43 U/L (12-78); ALBUMIN 3.3 g/dL (3.4-5.0); ANION GAP 29 mmol/L (5-15); CALCIUM 8.8 mg/dL (8.5-10.1); CHLORIDE 98 mmol/L (98-107); CREATININE 2.44 mg/dL (0.7-1.3)
[2020-03-22 17:17] LABS: ALKALINE PHOSPHATASE 84 U/L (45-117); BILIRUBIN,TOTAL 1.3 mg/dL (0.2-1.0); CREATINE KINASE, TOTAL 769 U/L (39-308); TOTAL PROTEIN 7.9 g/dL (6.4-8.2)
[2020-03-22] MEDS ORDERED: CEFTRIAXONE PMX 2GM/50ML 50 ML ONE (17:21)
[2020-03-22 17:30] LABS: ACETONE, SERUM Large (80mg/dL) (Negative)
[2020-03-22] MEDS ORDERED: CEFTRIAXONE PMX 2GM/50ML 50 ML IVPB ONE (17:30)
[2020-03-22] MEDS ORDERED: CEFTRIAXONE PMX 2GM/50ML 50 ML IVPB SCH (17:30)
--- NOTE | 2020-03-22 17:35 | NUR ---
WHEN RN ASKS PT TO STICK OUT HIS TONGUE, UNABLE TO DO SO. ORAL CARE PROVIDED. ADDITIONAL CARE NEEDED. PT FALLS ASLEEP EASILY. PT TOLERATED SRINIVASNA PLACEMENT WELL. DAUGHTER REMAINS AT BEDSIDE. PT RESPIRATIONS EVEN AND UNLABORED ON NC. SIDE RAILS UP. PT CURRENTLY TAKEN TO CT SCAN.
[2020-03-22 17:56] LABS: MD YES
[2020-03-22 17:56] LABS: MICROSCOPIC NOT IND
[2020-03-22] MEDS ORDERED: REGULAR INSULIN 100 UNITS in SODIUM CHLORIDE 0.9% 99 ML IV PRN (18:00)
[2020-03-22] MEDS ORDERED: AMPICILLIN/SULBACTAM 3 GM in SODIUM CHLORIDE 0.9% 100 ML IV ONE (18:00)
[2020-03-22] MEDS ORDERED: LACTATED RINGERS 1,000 ML IVBOLUS ONE (18:00)
[2020-03-22 18:03] LABS: BAND#(MANUAL) 2.43 x10^3/uL; BANDS%(MANUAL) 9 % (0-7); LYMPH#(MANUAL) 0.81 x10^3/uL (1-3.4); LYMPHS% (MANUAL) 3 % (22-44); MONOS#(MANUAL) 2.97 x10^3/uL (0.3-2.7); MONOS% (MANUAL) 11 % (2-9); SEG#(MANUAL) 20.79 x10^3/uL (1.8-6.8); SEGS% (MANUAL) 77 % (42-75)
--- NOTE | 2020-03-22 18:03 | NUR ---
PT BACK FROM CT. X2 ATTEMPTS FOR IV, UNSUCCESSFUL. RN REQUESTS HELP FOR IV START. PER DR BRIZUELA, FLUIDS LIMITED DUE TO SODIUM AND POTASSIUM LEVEL CONCERNS. DR BRIZUELA AWARE OF DIFFICULTY WITH IV ACCESS. PLAN FOR CENTRAL LINE.
[2020-03-22 18:05] LABS: <PLATELET ESTIMATE> ADEQUATE; <PLT MORPHOLOGY> NORMAL PLT MORPH; ANISOCYTOSIS 1+
--- NOTE | 2020-03-22 18:36 | NUR ---
DR BRIZUELA HAS PLACED CENTRAL LINE. AWAITING IMAGING CONFIRMATION PRIOR TO MEDICATION ADMINISTRATION.
--- NOTE | 2020-03-22 18:47 | NUR ---
ORAL CARE PROVIDED- PT HAS DIFFICULT TO REMOVE WHITE AND YELLOW PASTE AROUND TEETH AND ROOF OF MOUTH. CALL TO PHARMACY REGARDING INSULIN RUNNING WITH LR, PER PHARMACIST RN SHOULD WAIT FOR CENTRAL LINE CONFIRMATION.
--- NOTE | 2020-03-22 19:06 | NUR ---
REPORT TO ELIZABETH BERGMAN. DAUGHTER REMAINS AT BEDSIDE. PT WAKING UP WITH ORAL CARE, STILL APPEARS TIRED BUT SPEAKING MORE CLEARLY.
--- NOTE | 2020-03-22 19:06 | NUR ---
PER BLAYNE ANDRE TO USE CENTRAL LINE
[2020-03-22 19:33] LABS: TROPONIN I 0.554 ng/mL (0.000-0.045)
--- NOTE | 2020-03-22 19:37 | NUR ---
REPORT TO ELIZABETH ENGLISH
--- NOTE | 2020-03-22 19:42 | NUR ---
POOJA, DAUGHTER [phone]
[2020-03-22] MEDS ORDERED: PROMETHAZINE 25 MG/ML, 1ML IM PRN (20:00)
[2020-03-22] MEDS ORDERED: ONDANSETRON 2MG/ML, 2ML IVPush PRN (20:00)
[2020-03-22] MEDS ORDERED: hydrALAzine 20 MG/ML, 1ML IVPush PRN (20:00)
[2020-03-22] MEDS ORDERED: BISACODYL 10 MG SUPP PR PRN (20:00)
[2020-03-22] MEDS ORDERED: D5%-0.45NACL+KCL 20MEQ 1,000 ML IV SCH (20:00)
[2020-03-22] MEDS ORDERED: ACETAMINOPHEN 325 MG TABLET PO PRN (20:00)
[2020-03-22] MEDS ORDERED: ONDANSETRON ODT 4 MG PO PRN (20:00)
[2020-03-22] MEDS ORDERED: morphine SULFATE 10 MG/ML, 1ML IVPush PRN (20:00)
[2020-03-22] MEDS ORDERED: OXYcodone IR 5MG TABLET PO PRN (20:00)
[2020-03-22] MEDS ORDERED: DOCUSATE 100 MG CAPSULE PO PRN (20:00)
[2020-03-22] MEDS ORDERED: POLYETHYLENE GLYCOL 17 GM PACKET PO PRN (20:00)
[2020-03-22] MEDS: SODIUM CHLORIDE 0.9% 1,000 ML IV SCH (20:12)
[2020-03-22] MEDS: HEPARIN 5,000 UNITS/ML, 1ML SQ SCH (21:28)
[2020-03-22] MEDS: PIPERACILLIN/TAZO/PMX 2.25GM 50 ML IVPB SCH (21:30)
[2020-03-22] MEDS: LINEZOLID PMX 600MG/300ML 300 ML IV SCH (22:18)
[2020-03-22 23:50] LABS: ANION GAP 13 mmol/L (5-15); CALCIUM 8.6 mg/dL (8.5-10.1); CHLORIDE 110 mmol/L (98-107); CREATININE 2.17 mg/dL (0.7-1.3)
[2020-03-23] MEDS ORDERED: POTASSIUM CHLORIDE 40 MEQ in SODIUM CHLORIDE 0.9% 100 ML IV ONE (00:30)
[2020-03-23 01:27] VITALS: BP 134/81
[2020-03-23] MEDS: SODIUM CHLORIDE 0.9% 1,000 ML IV SCH (01:52)
[2020-03-23] MEDS: PIPERACILLIN/TAZO/PMX 2.25GM 50 ML IVPB SCH ×4 (02:47→20:07)
[2020-03-23 02:52] LABS: ANION GAP 10 mmol/L (5-15); CALCIUM 8.4 mg/dL (8.5-10.1); CHLORIDE 113 mmol/L (98-107); CREATININE 2.03 mg/dL (0.7-1.3)
[2020-03-23] MEDS: REGULAR INSULIN 100 UNITS in SODIUM CHLORIDE 0.9% 99 ML IV PRN ×2 (03:11→08:42)
[2020-03-23 04:02] LABS: MEAN CORPUSCULAR HEMOGLOBIN 31.2 pg (27.5-34.5); MEAN CORPUSCULAR HGB CONC 33.8 g/dL (33.2-36.2); MEAN PLATELET VOLUME 8.1 fL (7.4-10.4); PLATELET COUNT 184 x10^3/uL (130-400); RED BLOOD COUNT 5.82 x10^6/uL (4.38-5.82); RED CELL DISTRIBUTION WIDTH 15.7 % (9.4-14.8)
[2020-03-23 04:10] LABS: ALANINE AMINOTRANSFERASE 37 U/L (12-78); ALBUMIN 2.9 g/dL (3.4-5.0); ANION GAP 9 mmol/L (5-15); CALCIUM 8.6 mg/dL (8.5-10.1); CHLORIDE 117 mmol/L (98-107); CREATININE 2.03 mg/dL (0.7-1.3); MD YES
[2020-03-23 04:19] LABS: ALKALINE PHOSPHATASE 71 U/L (45-117); CHOL/HDL RATIO 2.2; CHOLESTEROL, TOTAL 111 mg/dL (140-239); HDL CHOL % 45 % (26-37); HDL CHOLESTEROL (DIRECT) 50 mg/dL (40-60); LDL CHOLESTEROL,CALCULATED 41 mg/dL (54-169); LDL/HDL RATIO 0.8 (0.5-3.0); TOTAL PROTEIN 7.1 g/dL (6.4-8.2); TRIGLYCERIDES 102 mg/dL (50-200); VLDL CHOLESTEROL 20 mg/dL (0-25)
[2020-03-23 04:30] LABS: BAND#(MANUAL) 2.51 x10^3/uL; BANDS%(MANUAL) 10 % (0-7); LYMPH#(MANUAL) 0.75 x10^3/uL (1-3.4); LYMPHS% (MANUAL) 3 % (22-44); MONOS% (MANUAL) 4 % (2-9); SEG#(MANUAL) 20.83 x10^3/uL (1.8-6.8); SEGS% (MANUAL) 83 % (42-75)
[2020-03-23 04:31] LABS: <PLATELET ESTIMATE> ADEQUATE; <PLT MORPHOLOGY> NORMAL PLT MORPH; ANISOCYTOSIS 1+
[2020-03-23] MEDS: HEPARIN 5,000 UNITS/ML, 1ML SQ SCH ×3 (04:51→20:06)
[2020-03-23] MEDS ORDERED: POTASSIUM PHOSPHATE 22 MEQ in SODIUM CHLORIDE 0.9% 500 ML IV ONE (07:00)
[2020-03-23] MEDS ORDERED: POTASSIUM CHLORIDE 20 MEQ in DEXTROSE 5% 1,000 ML IV SCH ×2 (07:00→10:15)
[2020-03-23 07:40] LABS: ANION GAP 8 mmol/L (5-15); CALCIUM 8.4 mg/dL (8.5-10.1); CHLORIDE 120 mmol/L (98-107); CREATININE 1.79 mg/dL (0.7-1.3)
[2020-03-23] MEDS: LINEZOLID PMX 600MG/300ML 300 ML IV SCH ×2 (08:42→20:58)
[2020-03-23] MEDS ORDERED: INSULIN GLARGINE 100 UNITS/ML, PEN SQ-INSULIN ONE (10:00)
[2020-03-23 10:12] LABS: ANION GAP 7 mmol/L (5-15); CALCIUM 8.1 mg/dL (8.5-10.1); CHLORIDE 119 mmol/L (98-107); CREATININE 1.68 mg/dL (0.7-1.3)
[2020-03-23] MEDS: INSULIN LISPRO 100 UNITS/ML, PEN SQ-INSULIN SCH ×5 (10:53→21:01)
[2020-03-23] MEDS ORDERED: INSULIN LISPRO 100 UNITS/ML, PEN SQ-INSULIN SCH (11:00)
[2020-03-23] MEDS: ASPIRIN 81 MG TABLET CHEW PO SCH (12:19)
[2020-03-23] MEDS ORDERED: LACTATED RINGERS 1,000 ML IV SCH (16:00)
[2020-03-23] MEDS: ATORVASTATIN 40 MG TABLET PO SCH (20:07)
[2020-03-23] MEDS ORDERED: INSULIN GLARGINE 100 UNITS/ML, PEN SQ-INSULIN SCH ×2 (21:00)
[2020-03-24] MEDS: PIPERACILLIN/TAZO/PMX 2.25GM 50 ML IVPB SCH ×2 (02:46→08:51)
[2020-03-24] MEDS: INSULIN LISPRO 100 UNITS/ML, PEN SQ-INSULIN SCH ×6 (03:36→23:23)
[2020-03-24 04:05] LABS: BASOPHILS % (AUTO) 0 % (0-1); EOSINOPHILS % (AUTO) 0 % (1-7); LYMPHOCYTES % (AUTO) 6 % (22-44); MEAN CORPUSCULAR HEMOGLOBIN 31.1 pg (27.5-34.5); MEAN CORPUSCULAR HGB CONC 33.4 g/dL (33.2-36.2); MEAN PLATELET VOLUME 8.6 fL (7.4-10.4); MONOCYTES % (AUTO) 8 % (2-9); NEUTROPHILS % (AUTO) 86 % (42-75); PLATELET COUNT 133 x10^3/uL (130-400); RED BLOOD COUNT 5.24 x10^6/uL (4.38-5.82); RED CELL DISTRIBUTION WIDTH 16.4 % (9.4-14.8)
[2020-03-24 04:08] LABS: MD NO
[2020-03-24 04:14] LABS: ANION GAP 6 mmol/L (5-15); CALCIUM 7.6 mg/dL (8.5-10.1); CHLORIDE 116 mmol/L (98-107)
[2020-03-24 04:15] LABS: CREATININE 1.28 mg/dL (0.7-1.3)
[2020-03-24] MEDS: HEPARIN 5,000 UNITS/ML, 1ML SQ SCH ×3 (04:33→22:26)
[2020-03-24] MEDS ORDERED: METOPROLOL TARTRATE 25 MG TAB PO SCH (06:30)
[2020-03-24] MEDS ORDERED: INSULIN GLARGINE 100 UNITS/ML, PEN SQ-INSULIN SCH ×3 (09:00→21:00)
[2020-03-24] MEDS: ASPIRIN 81 MG TABLET CHEW PO SCH (09:26)
[2020-03-24] MEDS: LINEZOLID PMX 600MG/300ML 300 ML IV SCH ×2 (09:26→22:26)
[2020-03-24] MEDS ORDERED: INSULIN LISPRO 100 UNITS/ML, PEN SQ-INSULIN SCH ×3 (11:30→17:00)
[2020-03-24] MEDS ORDERED: INSULIN LISPRO 100 UNIT/ML, 3ML VIAL SQ-INSULIN ONE (12:00)
[2020-03-24] MEDS: PIPERACILLIN/TAZO/PMX 3.375GM 50 ML IV SCH ×2 (14:23→21:20)
[2020-03-24] MEDS ORDERED: INSULIN LISPRO 100 UNITS/ML, PEN SQ-INSULIN ONE (15:30)
[2020-03-24 16:00] VITALS: BP 163/80
[2020-03-24] MEDS: METOPROLOL TARTRATE 50 MG TAB PO SCH (17:29)
[2020-03-24 18:03] VITALS: BP 168/82
[2020-03-24 20:40] VITALS: BP 163/93
[2020-03-24] MEDS: ATORVASTATIN 40 MG TABLET PO SCH (22:26)
[2020-03-25 01:35] VITALS: BP 162/93
[2020-03-25] MEDS: PIPERACILLIN/TAZO/PMX 3.375GM 50 ML IV SCH ×4 (01:35→23:57)
[2020-03-25 04:35] LABS: BASOPHILS % (AUTO) 0 % (0-1); EOSINOPHILS % (AUTO) 0 % (1-7); LYMPHOCYTES % (AUTO) 6 % (22-44); MD NO; MEAN CORPUSCULAR HEMOGLOBIN 31.4 pg (27.5-34.5); MEAN CORPUSCULAR HGB CONC 33.7 g/dL (33.2-36.2); MEAN PLATELET VOLUME 8.3 fL (7.4-10.4); MONOCYTES % (AUTO) 9 % (2-9); NEUTROPHILS % (AUTO) 84 % (42-75); PLATELET COUNT 134 x10^3/uL (130-400); RED BLOOD COUNT 5.34 x10^6/uL (4.38-5.82); RED CELL DISTRIBUTION WIDTH 16.3 % (9.4-14.8)
[2020-03-25 04:46] LABS: ANION GAP 5 mmol/L (5-15); CALCIUM 7.8 mg/dL (8.5-10.1); CHLORIDE 116 mmol/L (98-107)
[2020-03-25 04:49] LABS: CREATININE 1.06 mg/dL (0.7-1.3)
[2020-03-25] MEDS: INSULIN LISPRO 100 UNITS/ML, PEN SQ-INSULIN SCH ×6 (05:00→17:03)
[2020-03-25 06:00] VITALS: BP 168/95
[2020-03-25] MEDS: HEPARIN 5,000 UNITS/ML, 1ML SQ SCH ×2 (06:24→15:15)
[2020-03-25] MEDS: METOPROLOL TARTRATE 50 MG TAB PO SCH ×2 (06:25→18:23)
[2020-03-25] MEDS: INSULIN GLARGINE 100 UNITS/ML, PEN SQ-INSULIN SCH (09:56)
[2020-03-25] MEDS: ASPIRIN 81 MG TABLET CHEW PO SCH (09:56)
[2020-03-25] MEDS: LINEZOLID PMX 600MG/300ML 300 ML IV SCH (11:11)
[2020-03-25 12:14] VITALS: BP 165/90
[2020-03-25] MEDS ORDERED: DEXTROSE 50%, 50ML SYRINGE IVPush PRN (18:30)
[2020-03-25] MEDS ORDERED: DEXTROSE 4 GM TAB.CHEW PO PRN (18:30)
[2020-03-25] MEDS ORDERED: GLUCAGON 1 MG IM PRN (18:30)
[2020-03-25 20:00] VITALS: BP 149/82
[2020-03-25] MEDS ORDERED: INSULIN LISPRO 100 UNITS/ML, PEN SQ-INSULIN SCH (20:00)
[2020-03-25] MEDS: ATORVASTATIN 40 MG TABLET PO SCH (23:56)
[2020-03-25] MEDS: SODIUM CHLORIDE FLUSH 10ML SYR IVF SCH (23:59)
[2020-03-26] MEDS: INSULIN GLARGINE 100 UNITS/ML, PEN SQ-INSULIN SCH ×2 (00:04→22:35)
[2020-03-26] MEDS: INSULIN LISPRO 100 UNITS/ML, PEN SQ-INSULIN SCH ×6 (00:04→22:36)
[2020-03-26 00:24] VITALS: BP 148/78
[2020-03-26] MEDS: LINEZOLID PMX 600MG/300ML 300 ML IV SCH ×2 (00:41→15:20)
[2020-03-26] MEDS ORDERED: METF10007 PO (04:21)
[2020-03-26] MEDS ORDERED: LISI-606 PO (04:21)
[2020-03-26] MEDS ORDERED: CARV6.252 PO (04:21)
[2020-03-26] MEDS ORDERED: LEVO50TA5 PO (04:21)
[2020-03-26] MEDS ORDERED: NPH,100V5 SQ (04:21)
[2020-03-26] MEDS ORDERED: TAMS-11 PO (04:21)
[2020-03-26] MEDS ORDERED: GABA600T7 PO (04:21)
[2020-03-26] MEDS ORDERED: AMLO-211 PO (04:21)
[2020-03-26] MEDS ORDERED: DULA0.75 SQ (04:21)
[2020-03-26] MEDS ORDERED: METH-640 PO (04:21)
[2020-03-26] MEDS: METOPROLOL TARTRATE 50 MG TAB PO SCH ×2 (05:00→18:18)
[2020-03-26] MEDS: PIPERACILLIN/TAZO/PMX 3.375GM 50 ML IV SCH ×3 (05:02→23:11)
[2020-03-26 05:22] LABS: BASOPHILS % (AUTO) 0 % (0-1); EOSINOPHILS % (AUTO) 0 % (1-7); LYMPHOCYTES % (AUTO) 7 % (22-44); MEAN CORPUSCULAR HEMOGLOBIN 31.4 pg (27.5-34.5); MEAN CORPUSCULAR HGB CONC 33.6 g/dL (33.2-36.2); MEAN PLATELET VOLUME 8.8 fL (7.4-10.4); MONOCYTES % (AUTO) 8 % (2-9); NEUTROPHILS % (AUTO) 85 % (42-75); PLATELET COUNT 123 x10^3/uL (130-400); RED BLOOD COUNT 5.13 x10^6/uL (4.38-5.82); RED CELL DISTRIBUTION WIDTH 15.9 % (9.4-14.8)
[2020-03-26 05:23] LABS: MD NO
[2020-03-26 05:25] VITALS: BP 151/84
[2020-03-26 05:30] LABS: CHLORIDE 109 mmol/L (98-107)
[2020-03-26 05:37] LABS: ALANINE AMINOTRANSFERASE 75 U/L (12-78); ALKALINE PHOSPHATASE 76 U/L (45-117); ANION GAP 6 mmol/L (5-15); CALCIUM 7.1 mg/dL (8.5-10.1); CREATININE 1.14 mg/dL (0.7-1.3); TOTAL PROTEIN 6.6 g/dL (6.4-8.2)
[2020-03-26 07:14] VITALS: BP 128/75
[2020-03-26] MEDS: SODIUM CHLORIDE FLUSH 10ML SYR IVF SCH ×2 (10:14→22:36)
[2020-03-26] MEDS: ASPIRIN 81 MG TABLET CHEW PO SCH (10:14)
[2020-03-26] MEDS: ENOXAPARIN 40 MG/0.4 ML SQ SCH (10:16)
[2020-03-26] MEDS ORDERED: MAGNESIUM SULFATE PMX 2GM/50ML 50 ML IV ONE (10:30)
[2020-03-26] MEDS: POTASSIUM CHLORIDE 20 MEQ PACKET PO SCH ×2 (11:45→18:17)
[2020-03-26] MEDS: POTASSIUM ACID PHOSPHATE 500 MG TABLET.SOL PO SCH ×3 (11:46→22:33)
[2020-03-26 13:12] VITALS: BP 153/94
[2020-03-26 18:28] LABS: CLOSTRIDIUM DIFFICILE ANTIGEN NEGATIVE; CLOSTRIDIUM DIFFICILE TOXIN NEGATIVE (Negative)
[2020-03-26 20:00] VITALS: BP 156/94
[2020-03-26] MEDS ORDERED: INSULIN GLARGINE 100 UNITS/ML, PEN SQ-INSULIN SCH (21:00)
[2020-03-26] MEDS ORDERED: LINEZOLID PMX 600MG/300ML 300 ML IV SCH (21:00)
[2020-03-26] MEDS ORDERED: LOPERAMIDE 2 MG CAPSULE ONE (21:58)
[2020-03-26] MEDS ORDERED: LOPERAMIDE 2 MG CAPSULE NG ONE (22:00)
[2020-03-26] MEDS: ATORVASTATIN 40 MG TABLET PO SCH (22:33)
[2020-03-27] MEDS ORDERED: LOPERAMIDE 2 MG CAPSULE NG ONE (02:00)
[2020-03-27] MEDS: LINEZOLID PMX 600MG/300ML 300 ML IV SCH ×2 (02:03→14:04)
[2020-03-27 02:12] VITALS: BP 143/90
[2020-03-27 04:55] LABS: BASOPHILS % (AUTO) 0 % (0-1); EOSINOPHILS % (AUTO) 0 % (1-7); LYMPHOCYTES % (AUTO) 7 % (22-44); MEAN CORPUSCULAR HEMOGLOBIN 31.2 pg (27.5-34.5); MEAN CORPUSCULAR HGB CONC 33.5 g/dL (33.2-36.2); MEAN PLATELET VOLUME 8.5 fL (7.4-10.4); MONOCYTES % (AUTO) 8 % (2-9); NEUTROPHILS % (AUTO) 84 % (42-75); PLATELET COUNT 132 x10^3/uL (130-400); RED BLOOD COUNT 5.56 x10^6/uL (4.38-5.82); RED CELL DISTRIBUTION WIDTH 15.9 % (9.4-14.8)
[2020-03-27 04:58] LABS: MD NO
[2020-03-27 05:03] LABS: ALANINE AMINOTRANSFERASE 65 U/L (12-78); ANION GAP 6 mmol/L (5-15); CALCIUM 7.3 mg/dL (8.5-10.1); CHLORIDE 108 mmol/L (98-107); CREATININE 1.27 mg/dL (0.7-1.3)
[2020-03-27 05:05] LABS: ALKALINE PHOSPHATASE 80 U/L (45-117); BILIRUBIN,TOTAL 0.9 mg/dL (0.2-1.0); TOTAL PROTEIN 7.2 g/dL (6.4-8.2)
[2020-03-27 05:20] VITALS: BP 135/86
[2020-03-27] MEDS: PIPERACILLIN/TAZO/PMX 3.375GM 50 ML IV SCH ×3 (05:20→20:29)
[2020-03-27] MEDS: POTASSIUM ACID PHOSPHATE 500 MG TABLET.SOL PO SCH ×4 (05:20→18:25)
[2020-03-27] MEDS: METOPROLOL TARTRATE 50 MG TAB PO SCH ×2 (05:21→18:24)
[2020-03-27 07:13] VITALS: BP 151/98
[2020-03-27] MEDS: MAGNESIUM OXIDE 400 MG TABLET PO SCH (08:32)
[2020-03-27] MEDS: ASPIRIN 81 MG TABLET CHEW PO SCH (08:32)
[2020-03-27] MEDS: POTASSIUM CHLORIDE 20 MEQ PACKET PO SCH (08:32)
[2020-03-27] MEDS: ENOXAPARIN 40 MG/0.4 ML SQ SCH (08:33)
[2020-03-27] MEDS: SODIUM CHLORIDE FLUSH 10ML SYR IVF SCH ×2 (08:34→19:55)
[2020-03-27] MEDS: INSULIN LISPRO 100 UNITS/ML, PEN SQ-INSULIN SCH ×4 (08:35→20:56)
[2020-03-27] MEDS: INSULIN GLARGINE 100 UNITS/ML, PEN SQ-INSULIN SCH ×2 (08:36→19:59)
[2020-03-27] MEDS: LACTOBACILLUS CHEW TABLET PO SCH ×3 (11:23→19:54)
[2020-03-27 12:29] VITALS: BP 145/91
[2020-03-27 19:09] VITALS: BP 150/107
[2020-03-27 19:53] VITALS: BP 136/88
[2020-03-27] MEDS: ATORVASTATIN 40 MG TABLET PO SCH (19:55)
[2020-03-28 00:14] VITALS: BP 135/86
[2020-03-28 01:28] VITALS: BP 125/86
[2020-03-28] MEDS: POTASSIUM ACID PHOSPHATE 500 MG TABLET.SOL PO SCH (01:30)
[2020-03-28] MEDS: PIPERACILLIN/TAZO/PMX 3.375GM 50 ML IV SCH ×4 (01:31→18:46)
[2020-03-28] MEDS: LINEZOLID PMX 600MG/300ML 300 ML IV SCH (02:05)
[2020-03-28 04:34] LABS: BASOPHILS % (AUTO) 0 % (0-1); EOSINOPHILS % (AUTO) 2 % (1-7); LYMPHOCYTES % (AUTO) 9 % (22-44); MEAN CORPUSCULAR HEMOGLOBIN 31.2 pg (27.5-34.5); MEAN CORPUSCULAR HGB CONC 33.6 g/dL (33.2-36.2); MEAN PLATELET VOLUME 8.6 fL (7.4-10.4); MONOCYTES % (AUTO) 10 % (2-9); NEUTROPHILS % (AUTO) 79 % (42-75); PLATELET COUNT 141 x10^3/uL (130-400); RED BLOOD COUNT 5.28 x10^6/uL (4.38-5.82); RED CELL DISTRIBUTION WIDTH 16.2 % (9.4-14.8)
[2020-03-28 04:37] LABS: MD NO
[2020-03-28 04:42] LABS: ANION GAP 9 mmol/L (5-15); CALCIUM 7.1 mg/dL (8.5-10.1); CHLORIDE 104 mmol/L (98-107); CREATININE 1.48 mg/dL (0.7-1.3)
[2020-03-28] MEDS: METOPROLOL TARTRATE 50 MG TAB PO SCH ×2 (06:08→18:13)
[2020-03-28 07:03] VITALS: BP 139/90
[2020-03-28] MEDS: LACTOBACILLUS CHEW TABLET PO SCH ×3 (08:23→21:10)
[2020-03-28] MEDS: INSULIN LISPRO 100 UNITS/ML, PEN SQ-INSULIN SCH ×4 (08:23→21:11)
[2020-03-28] MEDS: ENOXAPARIN 40 MG/0.4 ML SQ SCH (08:23)
[2020-03-28] MEDS: ASPIRIN 81 MG TABLET CHEW PO SCH (08:23)
[2020-03-28] MEDS: MAGNESIUM OXIDE 400 MG TABLET PO SCH (08:24)
[2020-03-28] MEDS: SODIUM CHLORIDE FLUSH 10ML SYR IVF SCH ×2 (08:24→21:00)
[2020-03-28] MEDS: POTASSIUM CHLORIDE 20 MEQ PACKET PO SCH ×3 (08:24→18:13)
[2020-03-28] MEDS: INSULIN GLARGINE 100 UNITS/ML, PEN SQ-INSULIN SCH ×2 (08:25→21:12)
[2020-03-28] MEDS ORDERED: SODIUM CHLORIDE 0.9% 1,000 ML IV SCH (08:30)
[2020-03-28] MEDS ORDERED: LOPERAMIDE 2 MG CAPSULE PO ONE (11:00)
[2020-03-28 12:23] VITALS: BP 152/98
[2020-03-28 20:19] VITALS: BP 147/78
[2020-03-28] MEDS: ATORVASTATIN 40 MG TABLET PO SCH (21:10)
[2020-03-28 23:57] VITALS: BP 134/7
[2020-03-29] MEDS: PIPERACILLIN/TAZO/PMX 3.375GM 50 ML IV SCH ×4 (00:35→19:48)
[2020-03-29 04:51] LABS: ALBUMIN 1.8 g/dL (3.4-5.0); ANION GAP 6 mmol/L (5-15); CALCIUM 7.4 mg/dL (8.5-10.1); CHLORIDE 111 mmol/L (98-107)
[2020-03-29 04:54] LABS: ALANINE AMINOTRANSFERASE 42 U/L (12-78); ALKALINE PHOSPHATASE 59 U/L (45-117); BILIRUBIN,TOTAL 0.8 mg/dL (0.2-1.0); CREATININE 1.22 mg/dL (0.7-1.3); TOTAL PROTEIN 6.3 g/dL (6.4-8.2)
[2020-03-29 05:01] LABS: BASOPHILS % (AUTO) 0 % (0-1); EOSINOPHILS % (AUTO) 5 % (1-7); LYMPHOCYTES % (AUTO) 15 % (22-44); MEAN CORPUSCULAR HEMOGLOBIN 31.3 pg (27.5-34.5); MEAN CORPUSCULAR HGB CONC 33.3 g/dL (33.2-36.2); MEAN PLATELET VOLUME 8.4 fL (7.4-10.4); MONOCYTES % (AUTO) 11 % (2-9); NEUTROPHILS % (AUTO) 69 % (42-75); PLATELET COUNT 134 x10^3/uL (130-400); RED BLOOD COUNT 5.05 x10^6/uL (4.38-5.82)
[2020-03-29 05:07] VITALS: BP 133/7
[2020-03-29 05:11] LABS: MD NO
[2020-03-29 06:47] VITALS: BP 135/71
[2020-03-29] MEDS: POTASSIUM CHLORIDE 20 MEQ PACKET PO SCH (08:37)
[2020-03-29] MEDS: LACTOBACILLUS CHEW TABLET PO SCH ×3 (08:39→19:47)
[2020-03-29] MEDS: MAGNESIUM OXIDE 400 MG TABLET PO SCH (08:40)
[2020-03-29] MEDS: ASPIRIN 81 MG TABLET CHEW PO SCH (08:40)
[2020-03-29] MEDS: METOPROLOL TARTRATE 50 MG TAB PO SCH ×2 (08:40→18:32)
[2020-03-29] MEDS: ENOXAPARIN 40 MG/0.4 ML SQ SCH (08:46)
[2020-03-29] MEDS: INSULIN LISPRO 100 UNITS/ML, PEN SQ-INSULIN SCH ×4 (08:48→19:49)
[2020-03-29] MEDS: SODIUM CHLORIDE FLUSH 10ML SYR IVF SCH ×2 (08:48→19:48)
[2020-03-29] MEDS: INSULIN GLARGINE 100 UNITS/ML, PEN SQ-INSULIN SCH (08:48)
[2020-03-29 14:49] VITALS: BP 133/73
[2020-03-29 19:35] VITALS: BP 157/78
[2020-03-29] MEDS: ATORVASTATIN 40 MG TABLET PO SCH (19:47)
[2020-03-29] MEDS ORDERED: INSULIN GLARGINE 100 UNITS/ML, PEN SQ-INSULIN SCH (21:00)
[2020-03-30 01:08] VITALS: BP 164/75
[2020-03-30 04:54] LABS: BASOPHILS % (AUTO) 0 % (0-1); EOSINOPHILS % (AUTO) 3 % (1-7); LYMPHOCYTES % (AUTO) 13 % (22-44); MEAN CORPUSCULAR HEMOGLOBIN 30.9 pg (27.5-34.5); MEAN PLATELET VOLUME 8.2 fL (7.4-10.4); MONOCYTES % (AUTO) 10 % (2-9); NEUTROPHILS % (AUTO) 73 % (42-75); PLATELET COUNT 150 x10^3/uL (130-400); RED CELL DISTRIBUTION WIDTH 15.2 % (9.4-14.8)
[2020-03-30 04:56] LABS: MD NO
[2020-03-30 05:06] LABS: ANION GAP 4 mmol/L (5-15); CALCIUM 7.8 mg/dL (8.5-10.1); CHLORIDE 110 mmol/L (98-107); CREATININE 0.95 mg/dL (0.7-1.3)
[2020-03-30] MEDS: METOPROLOL TARTRATE 50 MG TAB PO SCH (05:52)
[2020-03-30 06:45] VITALS: BP 161/70
[2020-03-30] MEDS: INSULIN LISPRO 100 UNITS/ML, PEN SQ-INSULIN SCH ×3 (08:07→17:37)
[2020-03-30] MEDS ORDERED: LOPERAMIDE 1 MG/5 ML, 10ML UDC PO ONE (08:30)
[2020-03-30] MEDS ORDERED: LOPERAMIDE 2 MG CAPSULE PO PRN (08:30)
[2020-03-30] MEDS ORDERED: LOPERAMIDE 2 MG CAPSULE ONE (08:32)
[2020-03-30] MEDS: LACTOBACILLUS CHEW TABLET PO SCH ×2 (08:38→17:38)
[2020-03-30] MEDS: ENOXAPARIN 40 MG/0.4 ML SQ SCH (08:38)
[2020-03-30] MEDS: POTASSIUM CHLORIDE 20 MEQ PACKET PO SCH ×3 (08:39→17:38)
[2020-03-30] MEDS: MAGNESIUM OXIDE 400 MG TABLET PO SCH (08:39)
[2020-03-30] MEDS: ASPIRIN 81 MG TABLET CHEW PO SCH (08:40)
[2020-03-30] MEDS: SODIUM CHLORIDE FLUSH 10ML SYR IVF SCH (09:00)
[2020-03-30] MEDS ORDERED: LOPERAMIDE 1 MG/7.5 ML LIQUID PO ONE (09:00)
[2020-03-30] MEDS ORDERED: INSULIN GLARGINE 100 UNITS/ML, PEN SQ-INSULIN SCH ×2 (09:00→21:00)
[2020-03-30] MEDS ORDERED: NPH,100V5 SQ (10:43)
[2020-03-30] MEDS ORDERED: LEVO50TA PO (10:43)
[2020-03-30] MEDS ORDERED: DULA0.75 SQ (10:43)
[2020-03-30] MEDS ORDERED: TAMSULOSIN 0.4 MG CAP.ER.24H PO SCH (11:30)
[2020-03-30] MEDS ORDERED: LISINOPRIL 5 MG TABLET PO SCH (11:30)
[2020-03-30] MEDS ORDERED: LISINOPRIL 5 MG TABLET ONE (11:50)
[2020-03-30 12:25] VITALS: BP 160/65
[2020-03-30] MEDS ORDERED: ZIPRASIDONE 20 MG INJ IM PRN (15:30)
[2020-03-30] MEDS ORDERED: GABAPENTIN 300 MG CAPSULE PO SCH (16:00)
[2020-03-30] MEDS ORDERED: MAGN400T50 PO (16:22)
[2020-03-30] MEDS ORDERED: INSU100I11 SQ-INSULIN (16:22)
[2020-03-30] MEDS ORDERED: INSU100I13 SQ-INSULIN (16:22)
[2020-03-30] MEDS ORDERED: ACID1TAB7 PO (16:22)
[2020-03-30] MEDS ORDERED: GABA300C PO (16:22)
[2020-03-30] MEDS ORDERED: RISP0.5T62 PO (16:22)
[2020-03-30] MEDS ORDERED: CARVEDILOL 6.25 MG TABLET PO SCH (18:00)
[2020-03-30] MEDS ORDERED: RISPERIDONE 0.5 MG TABLET PO SCH (21:00)
[2020-03-31] MEDS ORDERED: LEVOTHYROXINE 50 MCG TABLET PO SCH (06:00)
[2020-03-31] MEDS ORDERED: CLOPIDOGREL 75 MG TABLET PO SCH (09:00)
[2020-03-31] MEDS ORDERED: AMLODIPINE 10 MG TAB PO SCH (09:00)
== END 2020-03-30 20:50 | DRG 871 ==
LOC: ED 18:00 → EDIP 19:53 → CCU 19:55 → 5SO 03-24 15:34
PROVIDERS: ADMIT Internal Medicine; ATTEND Internal Medicine
PROC: 0T9B70Z Drainage of Bladder with Drainage Device, Via Natural or Artificial Opening (ICD-10-PCS; principal; 2020-03-22)
DX: A41.9 Sepsis, unspecified organism (principal); E11.10 Type 2 diabetes mellitus with ketoacidosis without coma; N17.0 Acute kidney failure with tubular necrosis; J18.9 Pneumonia, unspecified organism; G93.41 Metabolic encephalopathy; I21.4 Non-ST elevation (NSTEMI) myocardial infarction; I21.A1 Myocardial infarction type 2; J96.01 Acute respiratory failure with hypoxia; N39.0 Urinary tract infection, site not specified; E87.0 Hyperosmolality and hypernatremia; I47.2 Ventricular tachycardia; N13.6 Pyonephrosis; R65.20 Severe sepsis without septic shock; D75.1 Secondary polycythemia; D69.6 Thrombocytopenia, unspecified; E03.9 Hypothyroidism, unspecified; E11.51 Type 2 diabetes mellitus with diabetic peripheral angiopathy without gangrene; E78.00 Pure hypercholesterolemia, unspecified; E78.5 Hyperlipidemia, unspecified; E83.39 Other disorders of phosphorus metabolism; E83.42 Hypomagnesemia; E86.0 Dehydration; E87.6 Hypokalemia; E88.09 Other disorders of plasma-protein metabolism, not elsewhere classified; F01.50 Vascular dementia, unspecified severity, without behavioral disturbance, psychotic disturbance, mood disturbance, and anxiety; I10 Essential (primary) hypertension; I25.10 Atherosclerotic heart disease of native coronary artery without angina pectoris; I49.3 Ventricular premature depolarization; B37.9 Candidiasis, unspecified; R13.10 Dysphagia, unspecified; I48.91 Unspecified atrial fibrillation; Z99.3 Dependence on wheelchair; Z86.73 Personal history of transient ischemic attack (TIA), and cerebral infarction without residual deficits; Z89.511 Acquired absence of right leg below knee; Z95.1 Presence of aortocoronary bypass graft; Z79.899 Other long term (current) drug therapy
CPT/HCPCS: 36415; 36600; 70450; 71045; 71250; 74018; 74176; 80048; 80053; 80061; 81003; 82010; 82150; 82550; 82607; 82803; 82947; 82962; 83036; 83605; 83690; 83735; 84100; 84145; 84443; 84484; 85025; 85610; 87040; 87081; 87324; 93005; 93306; 96374; 99291; G0378; J0295; J0696; J1644; J1650; J1815; J2020; J2543; J3480; J3486; J7070; J0360; J3475; J7030; J7040; J7120

== ENCOUNTER → 2020-06-08 | Outpatient (CLI) | payer MEDICARE ==
[~2020-06-08] MED LIST changes: +ACID1TAB7 PO; +AMLO-211 PO; +CARV6.252 PO; +DULA0.75 SQ; +GABA300C PO; +GABA600T7 PO; -HYDR-1067 PO; +HYDR-2214 PO; +INSU100I11 SQ-INSULIN; +INSU100I13 SQ-INSULIN; +LEVO50TA PO; +LEVO50TA5 PO; +LISI-606 PO; +MAGN400T50 PO; +METF10007 PO; +METH-640 PO; +NPH,100V SQ; +NPH,100V5 SQ; +RISP0.5T62 PO; +TAMS-11 PO
== END | disposition home or self-care (01) ==
LOC: CFH 09:58
PROVIDERS: ATTEND Physician Assistant Surgical
DX: N13.30 Unspecified hydronephrosis (principal)
CPT/HCPCS: 76770

== ENCOUNTER 2020-08-24 14:52 | Emergency (ER) | payer MEDICARE ==
[~2020-08-24] VITALS: Ht 182.9 cm; Wt 81.1 kg
[2020-08-24 15:42] VITALS: BP 107/58
[2020-08-24 16:24] LABS: BASOPHILS % (AUTO) 1 % (0-1); EOSINOPHILS % (AUTO) 2 % (1-7); LYMPHOCYTES % (AUTO) 19 % (22-44); MEAN CORPUSCULAR HEMOGLOBIN 31.3 pg (27.5-34.5); MEAN CORPUSCULAR HGB CONC 33.8 g/dL (33.2-36.2); MEAN PLATELET VOLUME 7.8 fL (7.4-10.4); MONOCYTES % (AUTO) 11 % (2-9); NEUTROPHILS % (AUTO) 66 % (42-75); PLATELET COUNT 228 x10^3/uL (130-400); RED BLOOD COUNT 5.17 x10^6/uL (4.38-5.82)
[2020-08-24 16:26] LABS: HCT (SEDRATE) 47.5 % (39.2-51.8)
[2020-08-24 16:33] LABS: ALBUMIN 3.4 g/dL (3.4-5.0); ANION GAP 8 mmol/L (5-15); CALCIUM 8.7 mg/dL (8.5-10.1); CHLORIDE 102 mmol/L (98-107)
[2020-08-24 16:36] LABS: ALANINE AMINOTRANSFERASE 27 U/L (12-78); ALKALINE PHOSPHATASE 65 U/L (45-117); BILIRUBIN,TOTAL 0.9 mg/dL (0.2-1.0); C-REACTIVE PROTEIN, QUANT 0.09 mg/dL (0.02-0.49); CREATININE 1.35 mg/dL (0.7-1.3); TOTAL PROTEIN 7.6 g/dL (6.4-8.2)
--- NOTE | 2020-08-24 17:10 | NUR ---
GLUE SPECIALTY SUPERVISOR: PT TO ROOM FROM [facility] W/C
[2020-08-24 17:22] LABS: MICROSCOPIC NOT IND
[2020-08-24] MEDS ORDERED: BACITRACIN ZINC OINT 500U/GM, 0.9 GM ONE (19:33)
== END 2020-08-24 20:07 | disposition home or self-care (01) ==
LOC: ED 19:45
DX: E11.621 Type 2 diabetes mellitus with foot ulcer (principal); L97.521 Non-pressure chronic ulcer of other part of left foot limited to breakdown of skin; I10 Essential (primary) hypertension; I25.10 Atherosclerotic heart disease of native coronary artery without angina pectoris; E78.00 Pure hypercholesterolemia, unspecified; E03.9 Hypothyroidism, unspecified; Z86.73 Personal history of transient ischemic attack (TIA), and cerebral infarction without residual deficits; Z95.1 Presence of aortocoronary bypass graft; Z89.511 Acquired absence of right leg below knee
CPT/HCPCS: 36415; 80053; 81003; 85025; 85651; 86140; 99284